=== PATIENT | male | born 1975 | race Caucasian/White ===

== ENCOUNTER 2020-10-10 01:33 | Emergency (ER) | payer OTHER ==
[~2020-10-10] VITALS: Ht 172.7 cm; Wt 102.1 kg
== END 2020-10-10 02:13 | disposition home or self-care (01) ==
LOC: ER 02:11
DX: T18.0XXA Foreign body in mouth, initial encounter (principal); I10 Essential (primary) hypertension
CPT/HCPCS: 99282